=== PATIENT | male | born 1965 | race Caucasian/White ===

== ENCOUNTER → 2024-11-11 07:02 | Outpatient (REF) | payer BC, SELFPAY | LOC: RAD 07:02 | PROVIDERS: ATTENDING PHYSICIAN Student in an Organized Health Care Education/Training Program | DX: Z12.89 Encounter for screening for malignant neoplasm of other sites (principal); Z80.51 Family history of malignant neoplasm of kidney; Z82.49 Family history of ischemic heart disease and other diseases of the circulatory system | CPT/HCPCS: 76775 ==

== ENCOUNTER → 2025-01-18 08:20 | Outpatient (REF) | payer BC, SELFPAY | LOC: HWRCS 08:20 | PROVIDERS: ATTENDING PHYSICIAN Internal Medicine; FAMILY PHYSICIAN Student in an Organized Health Care Education/Training Program | DX: I10 Essential (primary) hypertension (principal); R06.09 Other forms of dyspnea; Z82.49 Family history of ischemic heart disease and other diseases of the circulatory system | CPT/HCPCS: 78452; 93017; A9500 ==

== ENCOUNTER → 2025-01-24 15:54 | Outpatient (REF) | payer BC, SELFPAY | LOC: RCS 15:54 | PROVIDERS: ATTENDING PHYSICIAN Internal Medicine; FAMILY PHYSICIAN Student in an Organized Health Care Education/Training Program | DX: R06.09 Other forms of dyspnea (principal); Z82.49 Family history of ischemic heart disease and other diseases of the circulatory system; I10 Essential (primary) hypertension | CPT/HCPCS: 93306 ==